=== PATIENT | male | born 1990 | race Caucasian/White ===

== ENCOUNTER 2016-04-25 14:52 | Emergency (ER) | payer SELFPAY ==
[2016-04-25] MEDS ORDERED: OXYCODONE-ACETAMINOPHEN 5-325 MG TABLET PO ONE (15:06)
--- NOTE | 2016-04-25 15:07 | ER Document Report ---
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 Pt with lac to palmar aspect of left fifth finger. Patient unable to completely flex left fifth finger. Finger is swollen. Tetanus immunization is currently up-to- date. Patient cleansed finger yesterday with peroxide. Patient states that he took 2 leftover amoxicillin tablets at home. hx: None I have greeted and performed a rapid initial assessment of this patient. A comprehensive ED assessment and evaluation of the patient, analysis of test results and completion of the medical decision making process will be conducted by additional ED providers. - Related Data Allergies/Adverse Reactions: poison noris extract Allergy (Verified 04/25/16 15:02) Physical Exam - Vital signs Vitals: Temp Pulse Resp BP Pulse Ox 98.2 F 71 16 113/72 100 04/25/16 15:00 04/25/16 15:00 04/25/16 15:00 04/25/16 15:00 04/25/16 15:00 - Skin Irregularity with: Swelling, Tenderness, Warmth, Inflammation Course - Vital Signs Vital signs: Temp Pulse Resp BP Pulse Ox 98.2 F 71 16 113/72 100 04/25/16 15:00 04/25/16 15:00 04/25/16 15:00 04/25/16 15:00 04/25/16 15:00
[2016-04-25] MEDS ORDERED: CEPHALEXIN 500 MG CAPSULE PO ONE (18:10)
[2016-04-25] MEDS ORDERED: CLINDAMYCIN HCL 150 MG CAPSULE PO ONE (18:10)
--- NOTE | 2016-04-25 18:19 | ER Document Report ---
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 Patient states his tetanus is up-to-date. Patient denies any fevers or vomiting. He states the distal tip of his left pinky finger has become more painful over the last 48 hours. Patient denies a history of diabetes. TRAVEL OUTSIDE OF THE [place] IN LAST 30 DAYS: No - HPI Onset: Other - See above Onset/Duration: Sudden Quality of pain: Achy Severity: Moderate Pain Level: 3 Associated symptoms: Other - See above Exacerbated by: Movement Relieved by: Denies Similar symptoms previously: No Recently seen / treated by doctor: No - Related Data Allergies/Adverse Reactions: poison noris extract Allergy (Verified 04/25/16 15:02) Past Medical History - General Information source: Patient - Social History Smoking Status: Current Every Day Smoker Chew tobacco use (# tins/day): No Frequency of alcohol use: None Drug Abuse: None Family History: Reviewed & Not Pertinent Patient has suicidal ideation: No Patient has homicidal ideation: No Renal/ Medical History: Denies: Hx Peritoneal Dialysis Physical Exam - Vital signs Vitals: Temp Pulse Resp BP Pulse Ox 98.2 F 71 16 113/72 100 04/25/16 15:00 04/25/16 15:00 04/25/16 15:00 04/25/16 15:00 04/25/16 15:00 Notes: Reviewed vital signs and nursing note as charted by RN. CONSTITUTIONAL: Alert and oriented and responds appropriately to questions. Well -appearing; well-nourished HEAD: Normocephalic; atraumatic EXT: Patient has a small semicircular approximated laceration to the distal fat pad of the left pinky finger. Patient does have some tenderness and swelling to the distal fat pad of the pinky finger. There is no proximal finger tenderness. There is no dorsal or palmar erythema. I am able to hyperextend his pinky without pain. There is no obvious discharge from the lesion site. There are no erythematous streaks up the patient's arm. Course - Re-evaluation Re-evalutation: 02/05/17 18:15 X-ray of the finger was recorded showing no fractures or obvious soft tissue swelling according to the radiologist's interpretation. Given the mechanism, with the lines being septic lines, I will provide broad coverage antibiotics with both clindamycin and Keflex. Patient currently does not have signs of an obvious abscess or tenosynovitis. I am here in the emergency department tomorrow and the patient has agreed if I provided antibiotics that he will come and get reevaluated by myself tomorrow in the ER. I believe that this is reasonable and I do not believe laboratory values will assist me at this moment. Accu-Chek will be performed to insure that the patient is not a diabetic. - Vital Signs Vital signs: Temp Pulse Resp BP Pulse Ox 98.2 F 71 16 113/72 100 04/25/16 15:00 04/25/16 15:00 04/25/16 15:00 04/25/16 15:00 04/25/16 15:00 Discharge - Discharge Clinical Impression: Laceration of left index finger Cellulitis Qualifiers: Site of cellulitis of extremity: finger Laterality: left Condition: Good Disposition: HOME, SELF-CARE Additional Instructions: Come back immediately with any increased swelling, redness, pain, fever or vomiting, or any other acute problems. Please make sure that you come back tomorrow as we have discussed for recheck and please take the antibiotics using the discount prescription that I have provided. Prescriptions: Cephalexin Monohydrate [Keflex 500 mg Capsule] 500 mg PO Q6H 5 Days Clindamycin HCl [Cleocin 300 mg Capsule] 300 mg PO QID #40 capsule Hydrocodone/Acetaminophen [[place] 5-325 Tablet] 1 each PO Q6 PRN #12 tablet PRN Reason: For Pain
[2016-04-25 19:20] VITALS: BP 110/70
== END 2016-04-25 19:00 | disposition home or self-care (01) ==
LOC: ER 14:52
DX: S61.217A Laceration without foreign body of left little finger without damage to nail, initial encounter (principal); F17.200 Nicotine dependence, unspecified, uncomplicated; W31.83XA Contact with special construction vehicle in stationary use, initial encounter; Y93.H3 Activity, building and construction; Y99.0 Civilian activity done for income or pay
CPT/HCPCS: 99283

== ENCOUNTER 2018-10-24 21:18 | Emergency (ER) | payer OTHER ==
--- NOTE | 2018-10-24 22:51 | ER Document Report ---
HPI - HPI Patient complains to provider of: bilateral knee pain Time Seen by Provider: 10/24/18 22:36 Pain Level: 3 Context: 28-year-old male presents the emergency department with sores on his bilateral knees. He states is been there for 1 month patient is picking at them and they are not getting better. 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 He states they were diagnosed with a staph infection. He says the source is possibly there is one set of kneepads that everyone is using. Patient denies history of MRSA. Of note, patient also has left-sided leg pain. He denies fevers or chills, nausea or vomiting, shortness of breath or chest pain, no other complaints. - CONSTITUTIONAL Constitutional: DENIES: Fever Past Medical History - Social History Smoking Status: Current Every Day Smoker Chew tobacco use (# tins/day): No Frequency of alcohol use: None Drug Abuse: None Family History: Reviewed & Not Pertinent Patient has suicidal ideation: No Patient has homicidal ideation: No Renal/ Medical History: Denies: Hx Peritoneal Dialysis - Immunizations Hx Diphtheria, Pertussis, Tetanus Vaccination: Yes Vertical Provider Document - CONSTITUTIONAL Notes: PHYSICAL EXAMINATION: Reviewed vital signs and charting by RN GENERAL: Alert, interacts well. No acute distress. HEAD: Normocephalic, atraumatic. EYES: Pupils equal and round. Extraocular movements intact. ENT: Oral mucosa moist, tongue midline. EXTREMITIES: Moves all 4 extremities spontaneously. No edema, No cyanosis. PSYCH: Normal affect, normal mood. SKIN: Warm, dry, normal turgor. Several pustules on his anterior, bilateral knees and distal thighs with no active oozing or purulent discharge - INFECTION CONTROL TRAVEL OUTSIDE OF THE [place] IN LAST 30 DAYS: No Course - Re-evaluation Re-evalutation: 10/24/18 23:00 Patient most likely presents with a staph infection. Several of his workmates have been diagnosed. Plan is to place him on double coverage Bactrim and Keflex. No concerns for systemic infectious symptoms to be worried about meningitis or any deep space abscesses. Patient is stable for discharge. Discharge - Discharge Clinical Impression: Skin infection Condition: Good Disposition: HOME, SELF-CARE Additional Instructions: You were seen in the emergency department for a skin infection. It most likely is a staph infection and we are going to treat you with antibiotics. We are giving you Keflex 500 mg that you should take 4 times a day for 7 days and a medication called Bactrim that you should take 2 times per day for 7 days. Please take these medications until they are gone. Also, you can take 1 cup of bleach and place it in a full bathtub and soak in it for 20 to 30 minutes as this is been known to help with staph infections. If he starts to develop fevers, worsening infection, or you have any other concerns please immediately return to the emergency department.
[2018-10-24] MEDS ORDERED: SULFAMETHOXAZOLE/TRIMETHOPRIM 800-160 MG TABLET PO ONE (23:02)
[2018-10-24] MEDS ORDERED: CEPHALEXIN 500 MG CAPSULE PO ONE (23:02)
[2018-10-24 23:18] VITALS: BP 124/79
== END 2018-10-24 23:26 | disposition home or self-care (01) ==
LOC: ER 21:18
DX: L08.9 Local infection of the skin and subcutaneous tissue, unspecified (principal); Z20.818 Contact with and (suspected) exposure to other bacterial communicable diseases; M79.605 Pain in left leg; F17.200 Nicotine dependence, unspecified, uncomplicated
CPT/HCPCS: 99282

== ENCOUNTER 2019-08-24 02:29 | Emergency (ER) | payer SELFPAY ==
[2019-08-24] MEDS ORDERED: HYDROCODONE/ACETAMINOPHEN 5-325 MG (6 TAB/ER DISP) PO PRN (03:32)
[2019-08-24] MEDS ORDERED: CEFTRIAXONE INJ 1000 MG VIAL IM ONE (03:32)
[2019-08-24] MEDS ORDERED: LIDOCAINE 1% INJ-PF (10 MG/ML) 30 ML SDV INJ ONE (03:32)
[2019-08-24] MEDS ORDERED: SULFAMETHOXAZOLE/TRIMETHOPRIM 800-160 MG TABLET PO ONE (03:32)
[2019-08-24] MEDS ORDERED: PROMETHAZINE HCL 25 MG TABLET PO ONE (03:33)
[2019-08-24] MEDS ORDERED: OXYCODONE-ACETAMINOPHEN 5-325 MG TABLET PO ONE (03:33)
--- NOTE | 2019-08-24 03:37 | ER Document Report ---
ED Skin Rash/Insect Bite/Abscs - General Chief Complaint: Insect Bite Stated Complaint: POSSIBLE SPIDER BITE/LEFT KNEE PAIN Time Seen by Provider: 08/24/19 03:32 Notes: Patient is a 29-year-old male that comes to the emergency department for chief complaint of left leg pain, redness, swelling. 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 He states that while driving earlier today he started developing some redness and pain over the top of his knee, he states that over the course of the day this has rapidly spread upwards slightly above the knee and also downwards on the leg. He still has full range of motion of the knee and he is able to walk but he states the area started to become painful. He denies fever/chills. He denies any diagnosed medical history. His tetanus is up-to-date within 5 years reportedly. He denies history of IV drug abuse or MRSA. TRAVEL OUTSIDE OF THE [place] IN LAST 30 DAYS: No - Related Data Allergies/Adverse Reactions: poison noris extract Allergy (Verified 10/24/18 21:25) Past Medical History - General Information source: Patient - Social History Smoking Status: Current Every Day Smoker Frequency of alcohol use: Rare Drug Abuse: Marijuana Lives with: Family Family History: Reviewed & Not Pertinent Patient has homicidal ideation: No Renal/ Medical History: Denies: Hx Peritoneal Dialysis - Immunizations Immunizations up to date: Yes Hx Diphtheria, Pertussis, Tetanus Vaccination: Yes Review of Systems - Review of Systems Constitutional: No symptoms reported EENT: No symptoms reported Cardiovascular: No symptoms reported Respiratory: No symptoms reported Gastrointestinal: No symptoms reported Genitourinary: No symptoms reported Male Genitourinary: No symptoms reported Musculoskeletal: See HPI Skin: See HPI Hematologic/Lymphatic: No symptoms reported Neurological/Psychological: No symptoms reported Physical Exam - Vital signs Vitals: Temp Pulse Resp BP Pulse Ox 97.9 F 81 14 114/67 97 08/24/19 02:35 08/24/19 02:35 08/24/19 02:35 08/24/19 02:35 08/24/19 02:35 - Notes Notes: GENERAL: Alert, interacts well. No acute distress. HEAD: Normocephalic, atraumatic. EYES: Pupils equal, round, and reactive to light. Extraocular movements intact. ENT: Oral mucosa moist, tongue midline. Oropharynx unremarkable. Airway patent. LUNGS: Clear to auscultation bilaterally, no wheezes, rales, or rhonchi. No respiratory distress. Non-tender chest wall. HEART: Regular rate and rhythm. No murmur ABDOMEN: Soft, non-tender. Non-distended. EXTREMITIES: There is tenderness and slight soft tissue swelling over the left anterior knee mainly in the area just above the knee with erythema extending down across the knee and down below the knee. Area is warm and there is some tenderness but no severe tenderness. There is no induration or fluctuance. There is a small arnoldo which appears to be the beginning, this appears to be a small wound, does not appear to be a bite wound. There is no severe tenderness, patient has full range of motion of the joint, there is no streaking away from the area, normal distal neurovascular exam, normal lower extremity exam otherwise. BACK: no cervical, thoracic, lumbar midline tenderness. No saddle anesthesia, normal distal neurovascular exam. Moves all extremities in full range of motion. NEUROLOGICAL: Alert and oriented x3. Normal speech. Cranial nerves II through XII grossly intact. Strength 5/5 in all extremities. PSYCH: Normal affect, normal mood. SKIN: Warm, dry, normal turgor. No rashes or lesions noted. Course - Re-evaluation Re-evalutation: Patient has a small arnoldo which could be a small wound or abrasion but does not overtly appear to be a wound. Patient denies any snakebite possibility. Patient believes this was a spider. Regardless patient works on his legs and his exam is consistent with developing cellulitis. There does not appear to be any foreign body possibility based on exam, patient denies this as well. No i nduration or fluctuance suggesting abscess. No evidence of necrotizing fasciitis. Based on the rapid development I suspect this is strep. He was given a shot of Rocephin. He was also placed on Bactrim. Area was traced. Patient is full range of motion the knee, can ambulate without difficulty, has no fever or chills, does not have a history of diabetes, does not have a history of IV drug abuse reported and he has no track connor noted on exam. Discussed antibiotics, expectations, follow-up, and strict return precautions. Patient states understanding and agreement. - Vital Signs Vital signs: Temp Pulse Resp BP Pulse Ox 97.7 F 68 16 103/62 97 08/24/19 03:45 08/24/19 03:45 08/24/19 03:45 08/24/19 03:45 08/24/19 03:45 Discharge - Discharge Clinical Impression: Left leg pain Cellulitis Qualifiers: Site of cellulitis: extremity Site of cellulitis of extremity: lower extremity Laterality: left Qualified Code(s): L03.116 - Cellulitis of left lower limb Condition: Stable Disposition: HOME, SELF-CARE Instructions: Oral Narcotic Medication ([facility]) Additional Instructions: Your evaluation is consistent with cellulitis, a skin infection. Please take the antibiotics as prescribed to completion. Elevate your leg as much as possible. Keep the small opening site clean and I recommend a topical antibiotic over the area. Symptoms should resolve with time. Follow-up with primary care. Return if you worsen including spreading redness, severe worsening swelling, spiking fevers, or any other concerning or worsening symptoms. Prescriptions: Sulfamethoxazole/Trimethoprim [Bactrim Ds Tablet] 1 each PO BID #14 tablet Cephalexin Monohydrate [Keflex 500 mg Capsule] 500 mg PO QID #28 capsule Forms: Return to Work
[2019-08-24 03:46] VITALS: BP 103/62
== END 2019-08-24 04:38 | disposition home or self-care (01) ==
LOC: ER 02:29
DX: L03.116 Cellulitis of left lower limb (principal); M79.605 Pain in left leg; F17.200 Nicotine dependence, unspecified, uncomplicated
CPT/HCPCS: 99281; 96372; J3490; J0696